=== PATIENT | male | born 1970 | race Caucasian/White ===

== ENCOUNTER → 2021-05-17 14:25 | Outpatient (CLI) | payer OTHER, SELFPAY | PROVIDERS: PCP Nurse Practitioner Family; Visit Provider Nurse Practitioner | DX: U07.1 COVID-19 (principal) | CPT/HCPCS: C9803; U0003; U0005 ==

== ENCOUNTER → 2021-10-03 16:15 | Outpatient (CLI) | payer OTHER, SELFPAY ==
[2021-10-03 17:38] LABS: Alanine Aminotransferase 46 U/L (12-78); Albumin/Globulin Ratio 1.4 (1.1-1.8); Alkaline Phosphatase 102 U/L (38-126); Anion Gap 11.1 mEq/L (5-15); Aspartate Amino Transferase 47 U/L (17-59); Bilirubin,Total 0.3 mg/dl (0.2-1.3); Blood Urea Nitrogen 6 mg/dl (9-20); Calcium 8.9 mg/dl (8.4-10.2); Carbon Dioxide 28 mmol/L (22.0-30.0); Chloride 102 mmol/L (98-107); Estimated Glomerular Filt Rate 102 ml/min (>60); GFR (African American) 123 ML/MIN (>60); Globulin 2.8 g/dL (1.3-3.2); Glucose 94 mg/dl (74-100); Potassium 3.1 mmoL/L (3.5-5.1); Sodium 138 mmol/L (136-145); Total Protein,Serum 6.8 g/dl (6.3-8.2); Uric Acid 5.6 mg/dl (3.5-8.5)
[2021-10-03 17:43] LABS: C-Reactive Protein 6.2 mg/L (0-4)
[2021-10-03 18:09] LABS: Thyroid Stimulating Hormone 2.24 uIU/mL (0.465-4.68)
[2021-10-03 18:18] LABS: Erythrocyte Sedimentation Rate 16 mm/hr (0-20)
[2021-10-05 09:28] LABS: RA Latex Turbid. 20.1 IU/mL (<14.0)
[2021-10-20 20:24] LABS: Antinuclear Antibodies, IFA POSITIVE
== END ==
PROVIDERS: PCP Nurse Practitioner Family; Visit Provider Nurse Practitioner Family
DX: M79.672 Pain in left foot (principal); M79.671 Pain in right foot; R60.0 Localized edema
CPT/HCPCS: 36415; 80053; 84443; 84550; 85651; 86038; 86140; 86431

== ENCOUNTER 2022-06-28 21:57 | Emergency (ER) | payer OTHER, SELFPAY ==
[2022-06-28 22:15] VITALS: BP 186/78; PULSE 64; RESP 19; TEMP 36.8; O2SAT 96; BMI 42.0
[2022-06-28 22:17] VITALS: BP 187/78; PULSE 60; RESP 18; O2SAT 94
[2022-06-28 22:23] VITALS: BMI 42.0
--- NOTE | 2022-06-28 22:24 | XR_ITS ---
PROCEDURE INFORMATION: Exam: XR Right Ankle Exam date and time: 06/28/2022 10:32 PM Age: 52 years old Clinical indication: Pain; Ankle; Right; Additional info: Injury from axe 06/21 TECHNIQUE: Imaging protocol: Radiologic exam of the right ankle. Views: 3 or more views. COMPARISON: CR Foot R 06/28/2022 10:30 PM FINDINGS: Bones/joints: Normal. Soft tissues: Normal. IMPRESSION: No acute findings.
--- NOTE | 2022-06-28 22:24 | XR_ITS ---
PROCEDURE INFORMATION: Exam: XR Right Foot Exam date and time: 06/28/2022 10:30 PM Age: 52 years old Clinical indication: Pain; Foot; Right; Additional info: Injury from axe 06/21 TECHNIQUE: Imaging protocol: Radiologic exam of the right foot. Views: 3 or more views. COMPARISON: No relevant prior studies available. FINDINGS: Bones/joints: Wedge-shaped lucency of the distal aspect of the 2nd metatarsal Soft tissues: Normal. IMPRESSION: Wedge-shaped lucency of the distal aspect of the 2nd metatarsal. Probable artifact rather than fracture. Recommend clinical correlation.
[2022-06-28 23:04] VITALS: BP 185/58; PULSE 59; O2SAT 95
--- NOTE | 2022-06-28 23:20 | HMH.EDLOEX ---
Discharge Plan Disposition Patient Disposition: Home, Self-Care Prescriptions Prescriptions: New prednisone [prednisone] 20 mg tablet 20 mg PO BID Qty: 10 0RF cephalexin [cephalexin] 500 mg capsule 500 mg PO TID Qty: 30 0RF No Action lisinopril-hydrochlorothiazide 20-25 mg tablet 1 tab PO DAILY Label Comments: TAKE 1 TABLET BY MOUTH ONCE DAILY Referrals Follow up/Referrals: Kayleen Mtz APRN [Primary Care Provider] - See instructions Erendira Bear DPM [Staff Physician] - See instructions Clinical Impressions Clinical Impression: Injury of foot, right Instructions Patient Instructions: DI for Foot Pain Discharge ED Provider: Sebastian (ED)Yash Lower Extremity Injury HPI General Chief Complaint: Extremity Injury, Lower Stated Complaint: AO 06/21 injured R foot Time Seen by Provider: 06/28/22 23:00 Mode of Arrival: Family Vehicle Source of Information: Patient, Significant Other and Medical Record Limitations: No Limitations Description of Symptoms (Recalled from ER Triage Doc. by RN): Pt c/o R foot and ankle pain. Swelling, brusing, and pain with weight bearing is noted to anterior R foot and lateral R ankle. Pt states 1 wk ago he was swinging an axe when it made contact with his R foot. No open areas to skin. States the blade struck into the boot but not his skin. He has been elevating RLE & icing it on occasion. However, it is now too painful to leave dependent and bear his complete weight. 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 History of Present Illness HPI Narrative: pt with acute injury to rt foot about 1 week ago and has progressive swelling and reddness to dorsum of foot - pain with wt bearing complaint: foot injury Onset (ago): day(s) Injury: Right: foot Type of Injury: blunt Place: home Severity: moderate Associated symptoms: swelling and able to partially bear weight Other symptoms: none Related Data Home Medications Medication Instructions Recorded Confirmed lisinopril 20 1 tab PO DAILY High blood pressure 06/28/22 06/28/22 mg-hydrochlorothiazide 25 mg tablet Previous Rx's Medication Instructions Recorded cephalexin 500 mg capsule 500 mg PO TID #30 caps 06/28/22 prednisone 20 mg tablet 20 mg PO BID #10 tabs 06/28/22 Allergies Allergy/AdvReac Type Severity Reaction Status Date / Time amoxicillin [AMOXICILLIN] Allergy Unknown Verified 04/15/18 19:22 Penicillins Allergy Verified 04/15/18 19:22 [facility] Disclaimer: The information contained in this section may have been updated after the patient was seen, as this information can be updated by other users. Social History Smoking Status: Never smoker alcohol intake: never current occupational status: employed Travel in the last 8 weeks: None ROS Obtained: Yes All systems reviewed & no additional complaints except as documented Physical Exam General General appearance: alert Head Head exam: normocephalic Eye Eye exam: Present PERRL and EOMI ENT ENT exam: Present mucous membranes moist Neck Neck exam: Present trachea midline Respiratory Respiratory exam: Absent respiratory distress Cardiovascular Cardiovascular exam: Present regular rate Abdominal Exam Abdominal exam: Present soft Expanded Lower Extremity Exam Right: Foot/toe exam: Present tenderness, ecchymosis and erythema; Absent full ROM Neurovascular/Tendon exam: Absent pulse deficit Gait: observed and limited by pain Neurological Exam Neurological exam: Present alert, oriented X3 and CN II-XII intact Psychiatric Psychiatric exam: Present normal affect Skin Skin exam: Absent rash Medical Decision Making Medical Records Medical records reviewed: Yes I reviewed the patient's medical records. Gio Inquiry Pt receiving controlled substance: No Vital Signs: 06/28/22 22:17 06/28/22 22:15 06/28/22 23:04 Temperature 98.2 F Temperature Source Oral Pulse Rate 60 59 L Pulse Rate [Rig
--- NOTE | 2022-06-28 23:22 | CT_ITS ---
PROCEDURE INFORMATION: Exam: CT Right Lower Extremity Without Contrast, Foot Exam date and time: 06/28/2022 11:31 PM Age: 52 years old Clinical indication: Pain; Foot; Right; Additional info: Foot injury 1 wk ago, abn xray TECHNIQUE: Imaging protocol: CT of the right lower extremity without contrast was performed. Exam focused on the foot. Radiation optimization: All CT scans at this facility use at least one of these dose optimization techniques: automated exposure control; mA and/or kV adjustment per patient size (includes targeted exams where dose is matched to clinical indication); or iterative reconstruction. REPORTING DATA: Count of CT and Cardiac NM exams in prior 12 months: This patient has received 0 known CTs and 0 known cardiac nuclear medicine studies in the 12 months prior to the current study. COMPARISON: CR Foot R 06/28/2022 10:30 PM FINDINGS: Bones/joints: Normal. No acute fracture or dislocation. Soft tissues: Normal. IMPRESSION: No evidence for fracture or bone destruction.
[2022-06-28 23:52] VITALS: BP 160/76; PULSE 80; RESP 18; TEMP 36.8; O2SAT 97
== END 2022-06-29 00:04 | disposition home or self-care (01) ==
PROVIDERS: Emergency Provider Emergency Medicine; PCP Nurse Practitioner Family
DX: S99.921A Unspecified injury of right foot, initial encounter (principal); W27.8XXA Contact with other nonpowered hand tool, initial encounter
CPT/HCPCS: 73610; 73630; 73700; 99285

== ENCOUNTER 2023-03-20 21:38 | Observation (INO) | payer OTHER, SELFPAY ==
[2023-03-20] VITALS (8 sets, daily range): BP systolic 127–194; BP diastolic 76–106; PULSE 103–158; RESP 18–21; TEMP 36.6; O2SAT 93–96; BMI 43.2
--- NOTE | 2023-03-20 21:46 | ECG_ITS ---
APPROVED REPORT Exam: Resting ECG HR:157 bpm ECG Measurements Heart Rate 157 AXES QRSd 86 QRS 78 QT 281 T 4 QTc 369 Conclusion ATRIAL FIBRILLATION WITH RAPID VENTRICULAR RESPONSE NONSPECIFIC ST & T-WAVE ABNORMALITY CRITICAL TEST RESULT UNCONFIRMED REPORT Electronically signed by : Johan Pineda MD 03/21/2023 11:42:42
--- NOTE | 2023-03-20 22:00 | XR_ITS ---
PROCEDURE INFORMATION: Exam: XR Chest Exam date and time: 03/20/2023 10:02 PM Age: 52 years old Clinical indication: Shortness of breath; Additional info: SOA TECHNIQUE: Imaging protocol: Radiologic exam of the chest. Views: 1 view. COMPARISON: CR CXR2V XR chest 2V 11/22/2017 11:05 PM FINDINGS: Lungs: Clear, symmetrically inflated lungs. Mild pulmonary hyperinflation. Pleural spaces: No pleural effusion. No pneumothorax. Heart/Mediastinum: Cardiac silhouette is normal in size for technique. Bones/joints: Age appropriate. IMPRESSION: No acute cardiopulmonary abnormality. Mild pulmonary hyperinflation.
--- NOTE | 2023-03-20 22:08 | PC.NURSE ---
@ BS with patient with MD; patient placed on ZOLL pads.
[2023-03-20 22:11] LABS: Chloride 104 mmol/L (98-107); Potassium 3.6 mmoL/L (3.5-5.1); Sodium 138 mmol/L (136-145)
[2023-03-20 22:13] LABS: Alanine Aminotransferase 59 U/L (12-78); Alkaline Phosphatase 87 U/L (38-126); Aspartate Amino Transferase 50 U/L (17-59); Bilirubin,Total 0.5 mg/dl (0.2-1.3); Blood Urea Nitrogen 9 mg/dl (9-20); Creatinine Clearance Estimated 114 mL/min (50-200); Estimated Glomerular Filt Rate 101 ml/min (>60); GFR (African American) 122 ML/MIN (>60)
[2023-03-20 22:14] LABS: Albumin Level 4.4 g/dl (3.5-5.0); Albumin/Globulin Ratio 1.3 (1.1-1.8); Anion Gap 10.6 mEq/L (5-15); Calcium 8.7 mg/dl (8.4-10.2); Carbon Dioxide 27 mmol/L (22.0-30.0); Globulin 3.3 g/dL (1.3-3.2); Glucose 246 mg/dl (74-100); Total Protein,Serum 7.7 g/dl (6.3-8.2)
[2023-03-20 22:17] LABS: Basophils # 0.1 K/mm3 (0-0.2); Basophils % 0.5 % (0.1-2.0); Eosinophils # 0.3 K/mm3 (0.0-0.4); Eosinophils % 2.3 % (0.1-12.0); Hematocrit 49.6 % (42.0-52.0); Hemoglobin 17.3 g/dL (14.1-18.0); Lymphocytes % 25.5 % (10-50); Mean Corpuscular HGB Conc 34.8 g/dL (31.8-35.4); Mean Corpuscular Hemoglobin 28.7 pg (27.0-31.2); Mean Corpuscular Volume 82.5 fl (80-94); Mean Platelet Volume 9.4 fl (7.4-10.4); Monocytes # 0.7 K/mm3 (0.1-1.0); Monocytes % 5.9 % (1.7-9.3); Neutrophils # 7.7 K/mm3 (1.8-7.8); Neutrophils % 65.8 % (37.0-80.0); Platelet Count 189 K/mm3 (142-424); Red Blood Count 6.01 M/mm3 (4.60-6.20); Red Cell Distribution Width 14.4 % (11.5-17.5); White Blood Count 11.6 K/mm3 (4.8-10.8)
--- NOTE | 2023-03-20 22:17 | HMH.EDGENADL ---
Discharge Plan Disposition Patient Disposition: Admitted Chief Complaint: Shortness of Breath/Dyspnea Prescriptions Prescriptions: No Action lisinopril-hydrochlorothiazide 20-25 mg tablet 1 tab PO DAILY Patient Comments: TAKE 1 TABLET BY MOUTH ONCE DAILY prednisone [prednisone] 20 mg tablet 20 mg PO BID Qty: 10 0RF cephalexin [cephalexin] 500 mg capsule 500 mg PO TID Qty: 30 0RF Referrals Follow up/Referrals: Kayleen Mtz APRN [Primary Care Provider] - See instructions Clinical Impressions Clinical Impression: New onset a-fib, Heart palpitations, Non-ST elevation MD (NSTEMI) Discharge ED Provider: Armando Camargo General Adult HPI General Chief complaint: Shortness of Breath/Dyspnea Stated complaint: HOWARD, SOA, Time Seen by Provider: 03/20/23 21:42 Mode of Arrival: Ambulatory Source of Information: Patient Limitations: No Limitations Description of Symptoms (Recalled from ER Triage Doc. by RN): Presents to ED with c/o SOA and headache that started a little before 1400. Patient denies no other symptoms. 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 PMH: HTN. History of Present Illness HPI narrative: 52-year-old male history of hypertension, sleeping problems, presenting with palpitations and shortness of breath. Patient states that around 2 PM on 03/20, he began having palpitations and shortness of breath. states that patient brought the trash cans and and looked like he had ran a mile, after bringing them in. He was sweaty, short of breath. Patient denies chest pain, nausea or vomiting, but has having shortness of breath at rest. Has had something like this before, but did not get work-up for it. states that when he is sleeping he sounds like he stops breathing, but has never had a sleep work-up. Related Data Home Medications Medication Instructions Recorded Confirmed lisinopril 20 1 tab PO DAILY High blood pressure 06/28/22 06/28/22 mg-hydrochlorothiazide 25 mg tablet Previous Rx's Medication Instructions Recorded cephalexin 500 mg capsule 500 mg PO TID #30 caps 06/28/22 prednisone 20 mg tablet 20 mg PO BID #10 tabs 06/28/22 Allergies Allergy/AdvReac Type Severity Reaction Status Date / Time amoxicillin [AMOXICILLIN] Allergy Unknown Verified 04/15/18 19:22 Penicillins Allergy Verified 04/15/18 19:22 PFSH PFSH Disclaimer: The information contained in this section may have been updated after the patient was seen, as this information can be updated by other users. Medical History (Updated 03/20/23 @ 23:21 by Armando Camargo MD) Hemophilia Social History (Updated 06/28/22 @ 23:59 by Yash Cortes (RANDELL)MD) Smoking Status: Never smoker alcohol intake: never current occupational status: employed Travel in the last 8 weeks: None ROS Obtained: Yes All systems reviewed & no additional complaints except as documented Physical Exam General General appearance: alert and in no apparent distress Head Head exam: atraumatic and normocephalic Eye Eye exam: Present normal appearance, PERRL and EOMI ENT ENT exam: Present mucous membranes moist Neck Neck exam: Present normal inspection, full ROM and trachea midline Respiratory Respiratory exam: Present normal lung sounds bilaterally; Absent respiratory distress, wheezes, stridor, accessory muscle use or prolonged expiratory phase Cardiovascular Cardiovascular exam: Present tachycardia and irregular rhythm Abdominal Exam Abdominal exam: Present soft; Absent distention, tenderness, guarding, rebound, rigidity or normal bowel sounds Extremities Exam Extremities exam: Absent edema Neurological Exam Neurological exam: Present alert, oriented X3, CN II-XII intact and normal gait; Absent motor sensory deficit Skin Skin exam: Present warm and dry; Absent diaphoresis or erythema Medical Decision Making Medical Records Medical records reviewed: Yes I reviewed the patient's medical records. Gio Inquiry Pt receiving cont
[2023-03-20 22:26] LABS: Troponin I 0.05 ng/ml (0.00-0.034)
[2023-03-20 22:31] LABS: T4 (Thyroxine) 9.9 ug/dl (5.53-11.0)
--- NOTE | 2023-03-20 22:43 | PC.NURSE ---
provided pt with urinal
[2023-03-20 22:45] LABS: Thyroid Stimulating Hormone 2.13 uIU/mL (0.465-4.68)
--- NOTE | 2023-03-20 23:00 | PC.NURSE ---
MD notified of patient HR @ 108. V/O to hold off on second dose of Diltiazem.
--- NOTE | 2023-03-20 23:22 | EXP.HP ---
History of Present Illness *Admission Date: 03/20/23 *Reason for visit:: SOB and palpitation *History of present illness: This is a 52-year-old morbidly obese male with history of hypertension, non complaint, nicotine user, and hemophilia presented with palpitations and shortness of breath. Patient stated symptoms began around 2 PM on 03/20. , who is bedside, confirmed history. She reported that saw patient extremely short of air, pale and sweaty after minimal activity. Patient denies chest pain, nausea or vomiting, but has having shortness of breath at rest. Has had something like this before, but did not get work-up for it. also concerned about undiagnosed sleep apnea. Admitted for further work up. [facility] Disclaimer: The information contained in this section may have been updated after the patient was seen, as this information can be updated by other users. Medical History (Updated 03/21/23 @ 01:48 by Wiley Borrero APRN) Hemophilia Hemophilia A Hypertension Social History (Updated 03/21/23 @ 00:48 by Elayne Quinn RN) Smoking Status: Heavy tobacco smoker tobacco type: smokeless tobacco alcohol intake: never current occupational status: employed Travel in the last 8 weeks: None Review of Systems Review of Systems Review of systems:: pertinent systems reviewed and negative unless documented below Meds Home Medications and Allergies Home Medications Medication Instructions Recorded Confirmed Type lisinopril 20 1 tab PO DAILY High blood pressure 06/28/22 03/21/23 History mg-hydrochlorothiazide 25 mg tablet New Prescriptions to Start Prescriptions: Allergies Allergy/AdvReac Type Severity Reaction Status Date / Time amoxicillin [AMOXICILLIN] Allergy Unknown Verified 04/15/18 19:22 Penicillins Allergy Verified 04/15/18 19:22 Exam Data for Last 24 hours Vital signs and Labs for Last 24 Hours: Temp Pulse Resp BP Pulse Ox O2 Del Method 97.9 F 150 H 18 154/99 H 94 L Room Air 03/20/23 21:39 03/20/23 21:39 03/20/23 21:39 03/20/23 21:39 03/20/23 21:39 03/20/23 21:39 Laboratory Results - last 24 hr 03/20/23 21:55: WBC 11.6 H, RBC 6.01, Hgb 17.3, Hct 49.6, MCV 82.5, MCH 28.7, MCHC 34.8, RDW 14.4, Plt Count 189, MPV 9.4, Neut % (Auto) 65.8, Lymph % (Auto) 25.5, [place] % (Auto) 5.9, Eos % (Auto) 2.3, Baso % (Auto) 0.5, Neut # (Auto) 7.7, Lymph # (Auto) 3.0, [place] # (Auto) 0.7, Eos # (Auto) 0.3, Baso # (Auto) 0.1, Sodium 138, Potassium 3.6, Chloride 104, Carbon Dioxide 27, Anion Gap 10.6, BUN 9, Creatinine 0.80, Estimated Creat Clear 114, Estimated GFR 101, Est GFR ( Amer) 122, Glucose 246 H, Calcium 8.7, Total Bilirubin 0.5, AST 50, ALT 59, Alkaline Phosphatase 87, Troponin I 0.05 H, Total Protein 7.7, Albumin 4.4, Globulin 3.3 H, Albumin/Globulin Ratio 1.3, TSH 2.13, Thyroxine (T4) 9.9 I & O for Last 24 hours: Intake & Output 03/17/23 03/18/23 03/19/23 03/20/23 23:59 23:59 23:59 23:59 Weight 140.614 kg Constitutional Constitutional: mild distress, morbidly obese and cooperative *Routine HEENT Exam Head: Present normocephalic and atraumatic Eye: Present EOMI, PERRL and normal accommodation ENT: Present mucous membranes moist *Routine Neck Exam Neck: Present supple, full ROM and trachea midline *Routine Respiratory Exam Respiratory: Present normal respiratory effort, able to speak in complete sentences and symmetric chest movement *Routine Cardiovascular Exam Cardiovascular: Present Normal S1, Normal S2, tachycardia and irregularly irregular *Routine Abdominal Exam Abdominal: Present soft, normoactive bowel sounds, distended and obese; Absent organomegaly *Routine Rectal Exam Rectal:: deferred *Routine Genitalia Exam Genitalia:: deferred *Routine Extremities Exam Extremities: Present full ROM, pulses intact and normal capillary refill; Absent cyanosis, clubbing or edema *Routine Skin Exam Skin: Present intact, dry and warm *Routine Neurological
--- NOTE | 2023-03-20 23:30 | PC.NURSE ---
Rounded on patient; call light within reach of patient
--- NOTE | 2023-03-20 23:36 | ECG_ITS ---
APPROVED REPORT Exam: Resting ECG HR:106 bpm ECG Measurements Heart Rate 106 AXES QRSd 102 QRS 74 QT 325 T 54 QTc 387 Conclusion ATRIAL FIBRILLATION WITH RAPID VENTRICULAR RESPONSE MODERATE ST DEPRESSION [0.05+ mV ST DEPRESSION] ABNORMAL ECG UNCONFIRMED REPORT Electronically signed by : Johan Pineda MD 03/27/2023 08:55:39
[2023-03-21] VITALS (13 sets, daily range): BP systolic 120–168; BP diastolic 59–96; PULSE 58–124; RESP 16–20; TEMP 36.4–36.6; O2SAT 93–95; BMI 44.2
--- NOTE | 2023-03-21 00:10 | PC.NURSE ---
Rounded on patient; call light within reach of patient
--- NOTE | 2023-03-21 00:15 | PC.NURSE ---
Called report to Shanice ROMEO
--- NOTE | 2023-03-21 00:29 | PC.NURSE ---
2nd floor taking patient up to the floor. Patient transporting to the floor with RN on Amiodarone drip going at 33.3mL/hr
--- NOTE | 2023-03-21 00:36 | PC.NURSE ---
Patient arrived to floor via stretcher at 00:30.
[2023-03-21 01:35] LABS: Troponin I 0.05 ng/ml (0.00-0.034)
[2023-03-21 04:28] LABS: Cholesterol 178 mg/dl (140-200); Triglycerides 147 mg/dl (30-150); VLDL Cholesterol 29 mg/dL (0-40)
[2023-03-21 04:29] LABS: Chol/HDL Ratio 4.8 (1-3.5); HDL Cholesterol 37 mg/dl (40-60)
[2023-03-21 04:39] LABS: Direct LDL Cholesterol 116.24 mg/dL (100-129)
[2023-03-21 04:41] LABS: Troponin I 0.05 ng/ml (0.00-0.034)
[2023-03-21 07:45] LABS: Basophils # 0.1 K/mm3 (0-0.2); Basophils % 0.6 % (0.1-2.0); Eosinophils # 0.3 K/mm3 (0.0-0.4); Eosinophils % 2.5 % (0.1-12.0); Hematocrit 50.3 % (42.0-52.0); Hemoglobin 16.9 g/dL (14.1-18.0); Lymphocytes # 2.4 K/mm3 (0.7-4.5); Lymphocytes % 22.6 % (10-50); Mean Corpuscular HGB Conc 33.6 g/dL (31.8-35.4); Mean Corpuscular Hemoglobin 28.6 pg (27.0-31.2); Mean Corpuscular Volume 85.2 fl (80-94); Mean Platelet Volume 8.8 fl (7.4-10.4); Monocytes # 0.6 K/mm3 (0.1-1.0); Monocytes % 5.5 % (1.7-9.3); Neutrophils # 7.4 K/mm3 (1.8-7.8); Neutrophils % 68.8 % (37.0-80.0); Platelet Count 172 K/mm3 (142-424); Red Cell Distribution Width 14.5 % (11.5-17.5); White Blood Count 10.8 K/mm3 (4.8-10.8)
[2023-03-21 08:05] LABS: Alanine Aminotransferase 51 U/L (12-78); Albumin Level 4.1 g/dl (3.5-5.0); Albumin/Globulin Ratio 1.3 (1.1-1.8); Alkaline Phosphatase 91 U/L (38-126); Anion Gap 11.2 mEq/L (5-15); Aspartate Amino Transferase 46 U/L (17-59); Bilirubin,Total 0.5 mg/dl (0.2-1.3); Blood Urea Nitrogen 11 mg/dl (9-20); Calcium 8.5 mg/dl (8.4-10.2); Carbon Dioxide 27 mmol/L (22.0-30.0); Chloride 101 mmol/L (98-107); Creatinine Clearance Estimated 110 mL/min (50-200); Estimated Glomerular Filt Rate 101 ml/min (>60); GFR (African American) 122 ML/MIN (>60); Globulin 3.2 g/dL (1.3-3.2); Glucose 140 mg/dl (74-100); Potassium 3.2 mmoL/L (3.5-5.1); Sodium 136 mmol/L (136-145); Total Protein,Serum 7.3 g/dl (6.3-8.2)
[2023-03-21 08:59] LABS: Hemoglobin A1C 5.9 % (4.0-6.0)
--- NOTE | 2023-03-21 09:50 | ECG_ITS ---
APPROVED REPORT Exam: Resting ECG HR:67 bpm ECG Measurements Heart Rate 67 AXES IL 149 P 28 QRSd 91 QRS 10 QT 414 T -23 QTc 430 Conclusion SINUS RHYTHM WITH OCCASIONAL VENTRICULAR PREMATURE COMPLEXES NONSPECIFIC T-WAVE ABNORMALITY BORDERLINE ECG UNCONFIRMED REPORT Electronically signed by : Johan Pineda MD 03/21/2023 21:18:56
--- NOTE | 2023-03-21 11:03 | PC.NURSE ---
Spoke with MD Goldsmith about pt converting to NSR. EKG was obtained to confirm NSR. Amidarone was DC per MD Goldsmith after po dose of Diltiazem 180 mg administered. MD Swift aware. MD Goldsmith will DC Pt per pt request today. Will need echo beginning of week. MD Swift consulted per request of Agus for further orders. Per Jeniffer FERNÁNDEZ, Pt will need to be DC home on Diltiazem 240 mg PO daily. Pt will need an echocardiogram. Will need to come to office at 10 am Thursday. 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
--- NOTE | 2023-03-23 13:24 | CARE MANAGER ---
Spoke with patient related to hospital discharge. No new medications, but wanted to discontinue Lisinopril. However, he had follow up appointment with cardiology today and they want him to take the lisinopril. OUSMANE Zheng
--- NOTE | 2023-04-03 13:47 | EXP.DC.SUM ---
General Admission date:: 03/21/23 Discharge date: 03/21/23 HPI HPI HPI: This is a 52-year-old morbidly obese male with history of hypertension, non complaint, nicotine user, and hemophilia presented with palpitations and shortness of breath. Patient stated symptoms began around 2 PM on 03/20. , who is bedside, confirmed history. She reported that saw patient extremely short of air, pale and sweaty after minimal activity. Patient denies chest pain, nausea or vomiting, but has having shortness of breath at rest. Has had something like this before, but did not get work-up for it. also concerned about undiagnosed sleep apnea. Admitted for further work up. Hospital Course Hospital Course Hospital Course: Patient was seen and evaluated at the bedside on the day of discharge. Patient is stable for discharge. Patient wishes to be discharged. All patient questions were answered and patient was given time to ask questions. Patient was discharged in stable condition. Patient understands that she can return to ER in case of any sudden changes in health. 52-year-old morbidly obese male with history of hypertension, non complaint, nicotine user, and hemophilia presented with palpitations and shortness of breath. Upon arrival patient visible distressed. On tachycardia and hypertensive. CXR neg. EKG confirm afib with RVR. likely new onset since there is no previous history. Patient underwent IV push cardizem and started on Amiodarone cont infusion. Labs works are grossly unremarkable. Discussed with ER provider and agreed for admission. Plan as follow: -New onset afib with RVR: - rate controlled and stable -uncontrolled hypertension: - controlled -Elevated troponin: stable to ruled out ACS -Hx of Hemophilia. Condition reviewed. stable. Use ASA avoid blood thinner Will deferred the need of other anticoagulant to cardiology evaluate risk Vs benefit - Morbid obesity : BMI greater than 40. Will increase risk of CV complication and sleep apnea. continue monitoring PCP to f/u abnormal BMI - Nicotine user: chewer tobacco. nicotine patch PRN Exam Data for Last 24 hours Vital signs and Labs for Last 24 Hours: Temp Pulse Resp BP Pulse Ox O2 Del Method O2 Flow Rate 97.6 F 63 19 168/59 H 94 L Room Air 2 03/21/23 12:00 03/21/23 13:00 03/21/23 13:00 03/21/23 13:00 03/21/23 13:00 03/21/23 13:00 03/21/23 06:00 Constitutional Constitutional: no acute distress *Routine HEENT Exam Head: Present normocephalic Eye: Present EOMI and PERRL ENT: Present mucous membranes moist *Routine Neck Exam Neck: Present supple; Absent lymphadenopathy *Routine Respiratory Exam Respiratory: Present CTA bilaterally *Routine Cardiovascular Exam Cardiovascular: Present RRR *Routine Abdominal Exam Abdominal: Present soft and normoactive bowel sounds; Absent tenderness *Routine Extremities Exam Extremities: Absent cyanosis, clubbing or edema *Routine Skin Exam Skin: Present warm; Absent rash *Routine Neurological Exam Neurological: Present alert and oriented X3 DS: Diagnosis Discharge Diagnosis (1) New onset a-fib: Status: Inactive Code(s): I48.91 - Unspecified atrial fibrillation (2) Atrial fibrillation with RVR: Status: Inactive Code(s): I48.91 - Unspecified atrial fibrillation (3) Hypertensive emergency: Status: Inactive Code(s): I16.1 - Hypertensive emergency (4) Troponin level elevated: Status: Inactive Code(s): R79.89 - Other specified abnormal findings of blood chemistry (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
== END 2023-03-21 13:56 | disposition home or self-care (01) ==
LOC: ER 23:21 → 2ND 23:48
PROVIDERS: Nurse Practitioner Family; Admitting Provider Internal Medicine; Emergency Provider Emergency Medicine; PCP Nurse Practitioner Family; Visit Provider Internal Medicine
DX: I48.91 Unspecified atrial fibrillation (principal); I16.1 Hypertensive emergency; D67 Hereditary factor IX deficiency; F17.290 Nicotine dependence, other tobacco product, uncomplicated; E66.01 Morbid (severe) obesity due to excess calories; Z68.41 Body mass index [BMI] 40.0-44.9, adult; Z91.199 Patient's noncompliance with other medical treatment and regimen due to unspecified reason
CPT/HCPCS: 36415; 71045; 80053; 80061; 83036; 83735; 84436; 84443; 84484; 85025; 93005; 99291; G0378; J0282; J3475; J7060

== ENCOUNTER → 2023-03-23 11:02 | Outpatient (CLI) | payer OTHER, SELFPAY | PROVIDERS: PCP Nurse Practitioner Family; Visit Provider Physician Assistant | DX: D66 Hereditary factor VIII deficiency (principal); I48.91 Unspecified atrial fibrillation; R06.00 Dyspnea, unspecified; R06.81 Apnea, not elsewhere classified; R06.83 Snoring; R40.0 Somnolence; R60.9 Edema, unspecified; R79.89 Other specified abnormal findings of blood chemistry; E66.01 Morbid (severe) obesity due to excess calories; Z68.41 Body mass index [BMI] 40.0-44.9, adult; F17.200 Nicotine dependence, unspecified, uncomplicated | CPT/HCPCS: 93270 ==

== ENCOUNTER → 2023-03-27 07:06 | Outpatient (CLI) | payer OTHER, SELFPAY ==
--- NOTE | 2023-03-27 07:10 | NM_ITS ---
APPROVED REPORT Exam: Nuclear Stress Test Indication: DYSRHYTHMIA, OBESITY, HTN, SOB, PALPITATIONS Patient Location: Outpatient Stress Tech: Rin Wetzel [place] Tech:RIVKA Tejeda RT (R)(N)(M) Ht: 5 ft 11 in Wt: 317 lbs HR: 81 bpm BP: 183/80 mmHg BSA: 2.56 m2 TID: 0.98 BMI: 44.2 History: DYSRHYTHMIA, OBESITY, HTN, SOB, PALPITATIONS Procedure: Patient received 0.4 mg of intravenous Lexiscan, resting heart rate 81 bpm, resting blood pressure 183/80 mmHg, with Lexiscan maximum heart rate achieved was 101 bpm which is % of the maximum predicted heart rate and blood pressure was 196/79 mmHg. With Lexiscan, patient denied any complaint of chest pain. Cardiac Stress and Resting SPECT Images: Cardiac Stress and Resting SPECT images were obtained using technetium 99m Myoview 29.7 mCi stress and 9.69 mCi at rest. Resting stress imaging in supine position demonstrate a small sized, moderate, fixed perfusion defect in the basal inferior LV wall. This is no longer visualized with prone stress imaging. Findings are suggestive of diaphragmatic attenuation. Gated imaging demonstrates mild reduction in global LV systolic function. LVEF is calculated at 47%. LVEF may be inaccurate due to frequent ectopy. Conclusion: Diaphragmatic attenuation is present. No definite fixed or reversible perfusion defects. Gated imaging demonstrates mild reduction in global LV systolic function. LVEF is calculated at 47%. LVEF may be inaccurate due to frequent ectopy. Electronically signed by : Justina Ramírez MD 03/30/2023 12:53:25
--- NOTE | 2023-03-27 07:13 | CA_ITS ---
APPROVED REPORT EXAM: Comprehensive 2D, Doppler, and color-flow Echocardiogram Materials Research Engineer: Maia Stevenson, RCS, RVS Ht: 5 ft 10 in Wt: 323lbs BSA: 2.56 BP: 186/98 mmHg Rhythm: Atrial Fibrillation Indications: Afib, HTN, SOA, Palpitations 2D Dimensions LVDd 5.55 cm LVEF (Visual) 73.40 % LVDs 3.17 cm LA Volume 77.40 mL Aortic Root 3.39 cm LA Volume Index 29.50 mL/m2 (M/F) 16-34 Left Atrium 3.96 cm LVOT 1.95 cm (M/F) 1.5-2.5 M-Mode Dimensions RVDd 2.21 cm (0.9-2.6) LA Diam 4.17 cm (1.9-4.0) LVDd 5.86 cm (3.5-5.7) Ao Diam 3.49 cm (2.0-3.7) LVDs 4.08 cm (3.5-5.7) IVSd 1.32 cm (0.6-1.1) PWd 1.74 cm (0.6-1.1) EF (Teich) 57.00% EPSs 0.64 cm FS 30.40% EDV (Teich) 170.50 mL TAPSE 2.71 (<1.7) ESV (Teich) 73.40 mL LV Diastology E Decel Time 250.00 (160-240 msec) E/A Ratio 0.82 MED E' 3.60 (< 7 cm/sec) MED A' 7.90 cm/s E'/MED E' Ratio 19.94 (>14) LAT E' 4.70 (<10 cm/sec) LAT A' 8.10 cm/s E/LAT E' Ratio 15.28 (>14) Aortic Valve LVOT Max 116.00 (70-110 cm/s) LVOT VTI 21.64 cm AoV Peak Chau. 196.00 (50-130 cm/s) AO Peak GR. 15.60 mmHg AO Mean GR. 7.70 (<5 mmHg) AO VTI 32.34 (18-25 cm) AMBAR (VTI) 2.00 (2.5-4.5 cm2) Mitral Valve MV A Velocity 88.00 (40-130 cm/s) E/A Ratio 0.82 MV Decel. Time 250.00 (160-240 ms) Tricuspid Valve TR P. Velocity 290.00 cm/s RAP Estimate 10.00 mmHg RVSP 43.60 mmHg Left Ventricle The left ventricle is normal size. The left ventricular systolic function is normal. The left ventricular ejection fraction is within the normal range. There is markedly increased LV wall thickness (IVSd 2.8 cm). No evidence of LVOT obstruction at rest. Valsalva maneuver is not performed in this study to evaluate for any provocable LVOT gradient. There is normal LV segmental wall motion. Transmitral Doppler flow pattern suggests impaired LV relaxation. LVEF is 55%. Right Ventricle The right ventricle is normal size. The right ventricular systolic function is normal. Atria The left atrium size is normal. The right atrium size is normal. There is no Doppler evidence of interatrial shunt. Aortic Valve The aortic valve opens well. There is no aortic valvular stenosis. No aortic regurgitation is present. Mitral Valve The mitral valve is normal in structure. There is no evidence of systolic anterior motion (LIZETTE) of the MV leaflets. No evidence of mitral valve stenosis. Mild mitral regurgitation. Tricuspid Valve The tricuspid valve leaflets are thin and pliable. Trace tricuspid regurgitation. There is insufficient TR jet to estimate RVSP. Pulmonic Valve The pulmonary valve is normal in structure. Trace pulmonic regurgitation. Great Vessels The aortic root is normal in size. The ascending aorta is normal in size. IVC is normal in size and collapses >50% with inspiration. Pericardium There is no pericardial effusion. Other Information Study Quality: Fair Conclusion Normal biventricular systolic function. Markedly increased asymmetric LV wall thickness (IVSd 2.8 cm). No evidence of LIZETTE or LVOT obstruction at rest. LVOT gradient with Valsalva maneuver not performed. No significant valvular stenosis or regurgitation. 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 Electronically signed by : Justina Ramírez MD 04/03/2023 19:00:12
--- NOTE | 2023-03-27 09:32 | CA_ITS ---
APPROVED REPORT Exam: Pharmacologic Technologist: Rin Lizarraga, Ht: 5 ft 10 in Wt: 323 lbs BSA: 2.56 m2 HR: 79 bpm BP: 183/80 mmHg Rhythm: NSR Medical History Medications: DilTiazem,,,,, Lisinopril-Hydrochlorothiazide,,,,, Stress Test Details Test: LEXISCAN Reason for pharmacologic stress test: changed from exercise stress test due to inability to reach target heart rate. HR Resting HR: 81 bpm Max Heart Rate (APMHR): 167 bpm Max HR Achieved: 101 bpm Target HR (85% APMHR): 142 bpm % of APMHR: 60 Recovery HR: 87 bpm BP Resting BP: 183.0/80.0 mmHg Max BP: 196.0/79.0 mmHg Recovery BP: 166.0/85.0 mmHg ECG Resting ECG: NSR, PACs, PVC, ST abns inferiorly & laterally Stress ECG: No significant ST changes Arrhythmia: PACs, PVCs Clinical Exercise duration: 04:02 min Highest Stage Achieved: Exercise capacity: 1.0 METs Stress ECG Conclusion Switched fro to m exercise due to inadequate HR response with poor exercise tolerance. Symptoms: SOA, flushed, mild head discomfort. No CP. Arrhythmias/Ectopy: Frequent PACs, occasional PVC. ST-T changes: No significant ST changes. Conclusion: Unremarkable Lexiscan stress. Myoview images reported separately. Test Summary REST . . . . . . . Resting REST 00:50 . . 81 . 183/ 80 . . Stage 1 01:00 . . 91 . . . . Stage 2 01:00 . . 95 . . . . Stage 3 01:00 . . 86 . 196/ 79 . . Stage 4 01:00 . . 90 . . . . Stage 4 01:02 . . 91 . . . Stop exercise at 04:02 RECOVERY 01:00 . . 88 . 161/ 81 . . RECOVERY 02:00 . . 86 . 166/ 83 . . RECOVERY 03:00 . . 87 . 166/ 83 . . RECOVERY 03:33 . . 84 . 166/ 85 . . Electronically signed by : Justina Ramírez MD 03/30/2023 12:49:10
== END ==
LOC: RAD 07:07
PROVIDERS: PCP Nurse Practitioner Family; Visit Provider Internal Medicine
DX: R60.9 Edema, unspecified (principal); R06.00 Dyspnea, unspecified; I48.91 Unspecified atrial fibrillation; R00.2 Palpitations; R06.81 Apnea, not elsewhere classified; R06.83 Snoring; R40.0 Somnolence; R79.89 Other specified abnormal findings of blood chemistry; E66.01 Morbid (severe) obesity due to excess calories; Z68.41 Body mass index [BMI] 40.0-44.9, adult; F17.200 Nicotine dependence, unspecified, uncomplicated
CPT/HCPCS: 78452; 93017; 93018; 93306; A9502; J2785

== ENCOUNTER → 2023-04-24 08:09 | Outpatient (CLI) | payer OTHER, SELFPAY ==
--- NOTE | 2023-04-24 08:09 | CA_ITS ---
APPROVED REPORT EXAM: Comprehensive 2D, Doppler, and color-flow Echocardiogram Forensic Examiner: ARSALAN Kan, RVS Ht: 5 ft 10 in Wt: 323lbs BSA: 2.56 BP: 190/87 mmHg Indications: LVOT interrogation with Valsalva, HTN, LVH/HATTIE 2D Dimensions IVSd 1.34 cm LVEF (Visual) 55.00 % PWd 1.45 cm EF AP4 43.70 % LVDd 6.29 cm GL Strain -12.0 % LVDs 4.73 cm LVOT 2.08 cm (M/F) 1.5-2.5 M-Mode Dimensions RVDd 1.70 cm (0.9-2.6) LVDd 6.29 cm (3.5-5.7) LVDs 4.00 cm (3.5-5.7) IVSd 1.53 cm (0.6-1.1) PWd 1.28 cm (0.6-1.1) EF (Teich) 60.00% FS 34.80% EDV (Teich) 227.50 mL ESV (Teich) 70.00 mL Aortic Valve LVOT Max 100.0 (70-110 cm/s) AMBAR Index 0.71 cm2/m2 LVOT VTI 20.02 cm AoV Peak Chau. 184.0 (50-130 cm/s) AO Peak GR. 5.10 mmHg AO Mean GR. 7.80 (<5 mmHg) AO VTI 37.6 (18-25 cm) AMBAR (VTI) 1.81 (2.5-4.5 cm2) Other Information Study Quality: Technically Limited Conclusion This is a limited TTE to evaluate for LVOT obstruction in the setting of markedly increased LV wall thickness. Limited windows were obtained. The left ventricle is normal in size. There is marked increase in LV wall thickness. There is no LVOT gradient at rest. Transaortic and LVOT gradients with Valsalva maneuver not adequately evaluated due to absence of CW Doppler assessment during Valsalva. No evidence of systolic anterior motion (LIZETTE) of the MV leaflets. In the setting of suspected HCM, further evaluation with stress echocardiography may be recommended to assess for LVOT obstruction at rest, Valsalva, and during peak exercise. Electronically signed by : Justina Ramírez MD 04/24/2023 19:26:49
== END ==
LOC: RT 08:09
PROVIDERS: PCP Nurse Practitioner Family; Visit Provider Physician Assistant
DX: R06.00 Dyspnea, unspecified (principal); R60.9 Edema, unspecified; D66 Hereditary factor VIII deficiency; I42.1 Obstructive hypertrophic cardiomyopathy; R06.81 Apnea, not elsewhere classified; R06.83 Snoring; R40.0 Somnolence
CPT/HCPCS: 93308

== ENCOUNTER → 2023-04-30 08:55 | Outpatient (CLI) | payer OTHER, SELFPAY | PROVIDERS: PCP Nurse Practitioner Family; Visit Provider Physician Assistant | DX: G47.33 Obstructive sleep apnea (adult) (pediatric) (principal); G47.36 Sleep related hypoventilation in conditions classified elsewhere; R40.0 Somnolence; R06.83 Snoring; R06.00 Dyspnea, unspecified | CPT/HCPCS: G0399 ==

== ENCOUNTER 2023-05-22 09:41 | Outpatient (CLI) | payer OTHER, SELFPAY ==
--- NOTE | 2023-05-22 09:58 | MR_ITS ---
APPROVED REPORT Trim Stencil Maker: CLINICAL INDICATION HCM evaluation TECHNIQUE Image Acquisition: Cardiac magnetic resonance (CMR) was performed on Siemens Espree MRI 1.5T scanner. Software platform sequences were performed using the Siemens CRAVE MR B19 platform. A set of three-plane, low-resolution, large [id number] localizers were initially acquired. Then axial, coronal, sagittal TrueFISP, as well as axial HASTE images, were obtained. These were followed by gated TrueFISP breathold cinematic sequences obtained in the short axis with 8 mm slices and 2 mm gaps, 2-chamber (vertical long axis), 3-chamber, 4-chamber (horizontal long axis). A bolus of contrast was injected intravenously with first-pass sequences obtained in the short axis and four-chamber planes. After approximately 10 minutes, a TI bass singer sequence was performed to determine the optimal TI time. Using the optimized TI time, delayed contrast enhancement segmented inversion???recovery TurboFLASH sequences were obtained in the short axis, 2-chamber, 3-chamber, and 4-chamber projections. 2D-velocity phase mapping was performed. Functional parameters were calculated by offline analysis on an independent workstation ([employer], [employer]). Contrast: ProHance??? (Gadoteridol) FINDINGS MORPHOLOGY AND FUNCTION Left ventricle: The left ventricle is normal in size. The indexed left ventricular end-diastolic volume (LVEDVi) is 67 ml/m2 (reference range 57-105 ml/m2 in males, 56-96 ml/m2 in females). Normal left ventricular systolic function is present. There is asymmetric increase in left ventricular wall thickness, up to 15.4 mm in the mid-septal LV wall. There are no regional wall motion abnormalities noted. LVEF is calculated at 61.5% (reference range 57-77%). Right ventricle: The right ventricle is normal in size. The indexed right ventricular end-diastolic volume (RVEDVi) is 75 ml/m2 (reference range 61-121 ml/m2 in males, 48-112 ml/m2 in females). Normal right ventricular systolic function is present. RVEF is calculated at 55.1% (reference range 52-72% in males, 51-71% in females). Atria: The left atrium cavity is small. The maximum indexed left atrial volume is 23 ml/m2 (reference range 26-52 ml/m2 in males, 27-53 ml/m2 in females). The right atrium cavity is small. The maximum indexed right atrial volume is 10 ml/m2 (reference range 18-90 ml/m2). Aorta: The diameter of the aortic annulus is normal, measuring 26 mm (coronal view reference range 21-30 mm in males, 19-27 mm in females). The diameter of the aortic sinus is normal, measuring 30 mm (coronal view reference range 25-42 mm in males, 24-36 mm in females). The diameter of the sinotubular junction is normal, measuring 27 mm (coronal view reference range 18-32 mm in males, 18-28 mm in females). The ascending thoracic aorta is borderline dilated, measuring 37 mm in diameter. The diameter of the descending thoracic aorta is normal. Main pulmonary artery: The main pulmonary artery diameter is normal. Pericardium: The pericardial thickness is normal. The pericardial thickness measures 1.5 cm (normal < 4.0 cm). There is no pericardial effusion. VALVES The valvular morphologies in the visualized sequences appear normal. There is no significant valvular stenosis or regurgitation of the mitral, aortic, tricuspid, or pulmonic valve noted visually. Systolic anterior motion of the mitral valve is not visualized. Ratio of pulmonary to systemic flow, Qp:Qs ratio cannot be assessed due to absence of pulmonary phase contrast sequences. TISSUE CHARACTERIZATION Resting Perfusion: Normal myocardial blood flow at rest. No evidence of resting hypoperfusion. Myocardial Fibrosis and/or edema: Patchy late gadolinium enhancement is noted in the LV basal and mid-septal LV wall. The relative LGE burden is < 5% of total myocardium. OTHER No other significant findings are noted. However, this exam is focused on the cardiac structure and function. IMPRESSION Normal LV size with normal LV systolic function. LVEDVi= 67 ml/m2 and LVEF= 61.5%. Asymmetric increase in left ventricular wall thickness, up to 15.4 mm in the mid-septal LV wall. Normal RV size with normal RV systolic function. RVEDVi= 75ml/m2 and RVEF= 55.1%. No atrial enlargement. No evidence of systolic anterior motion (LIZETTE) of the MV leaflets or LVOT obstruction at rest. Patchy late gadolinium enhancement is noted in the LV basal and mid-septal LV wall. The relative LGE burden is < 5% of total myocardium. Perfusion analysis demonstrates normal blood flow at rest with no evidence of resting hypoperfusion. Borderline dilated ascending thoracic aorta (37 mm in diameter). The above findings of asymmetric increase in LV wall thickness > 15 mm meets CMR-criteria for hypertrophic cardiomyopathy (HCM) with preserved ejection fraction. There are no CMR-based indications for ICD for primary prevention (i.e. in this patient, septal wall thickness is < 30 mm and LGE burden is < 15%). Further work-up for HCM is recommended. Screening for first degree relatives is also recommended. COMPARISON None CRITICAL RESULT None COMMUNICATION Per this written report The findings of this cardiac MR were reviewed, reported, and signed by Kt Ramírez MD (Hims Clerk). Conclusion Electronically signed by : Justina Ramírez MD 05/25/2023 00:43:22
[2023-05-22 10:09] LABS: Blood Urea Nitrogen 14 mg/dl (9-20); Estimated Glomerular Filt Rate 88 ml/min (>60); GFR (African American) 106 ML/MIN (>60)
[2023-05-22] MEDS: SODIUM CHLORIDE 0.9% 50ML BAG 25 ML IV (11:49)
[2023-05-22] MEDS: SODIUM CHLORIDE 0.9% 10ML SYR (RAD ONLY) 10 ML IV (11:49)
[2023-05-22] MEDS: GADOTERIDOL INJ 17ML SYRINGE 20 ML IV (11:49)
== END 2023-05-22 23:59 ==
LOC: RAD 09:42
PROVIDERS: PCP Nurse Practitioner Family; Visit Provider Physician Assistant
DX: R06.00 Dyspnea, unspecified (principal); I42.1 Obstructive hypertrophic cardiomyopathy; D66 Hereditary factor VIII deficiency; R06.81 Apnea, not elsewhere classified; R06.83 Snoring; R40.0 Somnolence; R60.9 Edema, unspecified
CPT/HCPCS: 36415; 75561; 82565; 84520; A9576

== ENCOUNTER 2023-10-08 09:30 | Outpatient (CLI) | payer OTHER, SELFPAY | END 2023-10-08 23:59 | disposition home or self-care (01) | LOC: RT 09:31 | PROVIDERS: PCP Nurse Practitioner Family; Visit Provider Physician Assistant | DX: I48.91 Unspecified atrial fibrillation (principal); I42.2 Other hypertrophic cardiomyopathy; R94.31 Abnormal electrocardiogram [ECG] [EKG]; I10 Essential (primary) hypertension; F17.200 Nicotine dependence, unspecified, uncomplicated | CPT/HCPCS: 93270 ==

== ENCOUNTER 2024-06-23 15:58 | Outpatient (CLI) | payer OTHER, SELFPAY ==
[2024-06-23 16:08] VITALS: BP 130/77; PULSE 65; RESP 18; TEMP 36.5
== END 2024-06-23 16:20 | disposition home or self-care (01) ==
LOC: INF 15:59
PROVIDERS: PCP Nurse Practitioner Family; Visit Provider Nurse Practitioner Family
DX: D66 Hereditary factor VIII deficiency (principal)
CPT/HCPCS: 96374

== ENCOUNTER 2024-07-01 08:19 | Outpatient (CLI) | payer OTHER, SELFPAY ==
[2024-07-01 15:15] VITALS: BP 120/68; PULSE 85; RESP 18; TEMP 36.3; O2SAT 96
== END 2024-07-01 15:30 | disposition home or self-care (01) ==
LOC: INF 08:20
PROVIDERS: PCP Nurse Practitioner Family; Visit Provider Nurse Practitioner Family
DX: D66 Hereditary factor VIII deficiency (principal)
CPT/HCPCS: 96374

== ENCOUNTER 2024-07-08 08:09 | Outpatient (CLI) | payer OTHER, SELFPAY ==
[2024-07-08 08:20] VITALS: BMI 46.2
[2024-07-08 08:22] VITALS: BP 111/74; PULSE 61; RESP 18; TEMP 36.6; O2SAT 97
[2024-07-08 08:42] LABS: Basophils # 0.1 K/mm3 (0-0.2); Eosinophils # 0.1 K/mm3 (0.0-0.4); Eosinophils % 1.2 % (0.1-12.0); Hematocrit 45.1 % (42.0-52.0); Hemoglobin 15.6 g/dL (14.1-18.0); Lymphocytes # 1.6 K/mm3 (0.7-4.5); Lymphocytes % 30.6 % (10-50); Mean Corpuscular HGB Conc 34.6 g/dL (31.8-35.4); Mean Corpuscular Hemoglobin 27.7 pg (27.0-31.2); Mean Platelet Volume 9.9 fl (7.4-10.4); Monocytes # 0.2 K/mm3 (0.1-1.0); Monocytes % 3.9 % (1.7-9.3); Neutrophils # 3.1 K/mm3 (1.8-7.8); Neutrophils % 58.7 % (37.0-80.0); Platelet Count 148 K/mm3 (142-424); Red Blood Count 5.64 M/mm3 (4.60-6.20); Red Cell Distribution Width 13.2 % (11.5-17.5); White Blood Count 5.2 K/mm3 (4.8-10.8)
[2024-07-08 08:50] LABS: Albumin Level 4.3 g/dl (3.5-5.0); Chloride 103 mmol/L (98-107); Potassium 3.2 mmoL/L (3.5-5.1); Sodium 136 mmol/L (136-145)
[2024-07-08 08:52] LABS: Blood Urea Nitrogen 15 mg/dl (9-20)
[2024-07-08 08:53] LABS: Alanine Aminotransferase 44 U/L (12-78); Albumin/Globulin Ratio 1.6 (1.1-1.8); Alkaline Phosphatase 78 U/L (38-126); Anion Gap 9.2 mEq/L (5-15); Aspartate Amino Transferase 38 U/L (17-59); Bilirubin,Total 0.9 mg/dl (0.2-1.3); Calcium 8.9 mg/dl (8.4-10.2); Carbon Dioxide 27 mmol/L (22.0-30.0); Creatinine Clearance Estimated 86 mL/min (50-200); Estimated Glomerular Filt Rate 78 ml/min (>60); GFR (African American) 94 ML/MIN (>60); Globulin 2.7 g/dL (1.3-3.2); Glucose 160 mg/dl (74-100)
[2024-07-11 12:10] LABS: Factor VIII Activity 253 % (56-140)
== END 2024-07-08 08:35 | disposition home or self-care (01) ==
LOC: INF 08:09
PROVIDERS: PCP Nurse Practitioner Family; Visit Provider Nurse Practitioner Family
DX: D67 Hereditary factor IX deficiency (principal)
CPT/HCPCS: 80053; 85025; 85240; 96374

== ENCOUNTER 2024-08-24 09:12 | Outpatient (CLI) | payer OTHER, SELFPAY ==
[2024-08-24 10:37] LABS: Anion Gap 10.8 mEq/L (5-15); Blood Urea Nitrogen 15 mg/dl (9-20); Carbon Dioxide 30 mmol/L (22.0-30.0); Chloride 104 mmol/L (98-107); Estimated Glomerular Filt Rate 78 ml/min (>60); GFR (African American) 94 ML/MIN (>60); Glucose 111 mg/dl (74-100); Potassium 3.8 mmoL/L (3.5-5.1); Sodium 141 mmol/L (136-145)
== END 2024-08-24 23:59 | disposition home or self-care (01) ==
LOC: LAB 09:12
PROVIDERS: PCP Nurse Practitioner Family; Visit Provider Physician Assistant
DX: I10 Essential (primary) hypertension (principal); F17.200 Nicotine dependence, unspecified, uncomplicated
CPT/HCPCS: 36415; 80048